=== PATIENT | female | born 1960 | race Caucasian/White ===

== ENCOUNTER 2018-09-05 06:14 | Day surgery (SDC) | payer BC ==
[~2018-09-05 06:14] MED LIST: Lactated Ringers 1,000 ML IV SCH; Lidocaine 1%/Sod Bicarbonate in NS 8.4% 1 ML Syringe IDERM PRN; Sodium Chloride 0.9% 10 ML Syringe FLUSH PRN
[2018-09-05] MEDS ORDERED: Lidocaine 1% PF 2 ML SDV ONE (06:24)
[2018-09-05] MEDS ORDERED: Lidocaine 1% 30 ML SDV ONE (06:24)
[2018-09-05] MEDS ORDERED: Bupivacaine 0.25% 30 ML SDV ONE (06:24)
[2018-09-05] MEDS ORDERED: Propofol 200 MG/20 ML SDV ONE (06:25)
[2018-09-05] MEDS ORDERED: fentaNYL 100 MCG/2 ML SDV ONE (06:25)
[2018-09-05] MEDS ORDERED: Midazolam 1 MG/ML 2 ML SDV ONE (06:25)
--- NOTE | 2018-09-05 06:47 | PCM.PREANE ---
Preanesthetic Assessment - Procedure Proposed Procedure: left ctr, left elbow manipulation - Anesthesia/Transfusion/Family Hx Anesthesia History: Prior Anesthesia Without Reaction Family History of Anesthesia Reaction: No Transfusion History: No Prior Transfusion(s) - Review of Systems General: No Symptoms Pulmonary: No Symptoms Cardiovascular: No Symptoms Gastrointestinal: No Symptoms Neurological: No Symptoms Other: Reports: Thyroid Problems - Physical Assessment NPO Status Date: 09/04/18 NPO Status Time: 21:00 Pulse: 63 O2 Sat by Pulse Oximetry: 98 Respiratory Rate: 16 Blood Pressure: 128/84 Temperature: 97.7 F Height: 5 ft Weight: 52.889 kg ASA Class: 2 Mental Status: Alert & Oriented x3 Airway Class: Mallampati = 1 Dentition: Reports: Normal Dentition Thyro-Mental Finger Breadths: 3 Mouth Opening Finger Breadths: 3 ROM/Head Extension: Full Lungs: Clear to Auscultation, Normal Respiratory Effort Cardiovascular: Regular Rate, Regular Rhythm - Lab Values: Laboratory Last Values MRSA (PCR) Negative 08/29/18 11:30 - Allergies Allergies/Adverse Reactions: Allergies Allergy/AdvReac Type Severity Reaction Status Date / Time No Known Allergies Allergy Verified 09/04/18 14:13 - Blood Blood Available: No - Acknowledgements Anesthesia Type Planned: MAC Pt an Appropriate Candidate for the Planned Anesthesia: Yes Alternatives and Risks of Anesthesia Discussed w Pt/Guardian: Yes Pt/Guardian Understands and Agrees with Anesthesia Plan: Yes PreAnesthesia Questionnaire - Past Health History Medical/Surgical History: Denies Medical/Surgical History HEENT History: Reports: Impaired Vision, Other (See Below) Other HEENT History: wears glasses Cardiovascular History: Reports: None Respiratory History: Reports: None Gastrointestinal History: Reports: Chronic Constipation Genitourinary History: Reports: Other (See Below) Other Genitourinary History: atrophic vaginits, hysterectomy, 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, 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 WET WASH History: Reports: , Other (See Below) Other OB/BYN History: atrophic vaginitis Musculoskeletal History: Reports: Other (See Below) Neurological History: Reports: None Psychiatric History: Reports: None Endocrine/Metabolic History: Reports: Hypothyroidism Hematologic History: Reports: Other (See Below) Other Hematologic History: 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; genetic Immunologic History: Reports: None Oncologic (Cancer) History: Reports: None Dermatologic History: Reports: Other (See Below) Other Dermatologic History: onchomycosis - Past Surgical History Head Surgeries/Procedures: Reports: None HEENT Surgical History: Reports: Tonsillectomy Cardiovascular Surgical History: Reports: None Respiratory Surgical History: Reports: None GI Surgical History: Reports: Colonoscopy Female Surgical History: Reports: Hysterectomy, Oophorectomy, Tubal Ligation Endocrine Surgical History: Reports: None Neurological Surgical History: Reports: None Musculoskeletal Surgical History: Reports: Other (See Below) Other Musculoskeletal Surgeries/Procedures:: right shoulder rotator cuff repair , left elbow surgery Oncologic Surgical History: Reports: None Dermatological Surgical History: Reports: None - SUBSTANCE USE Smoking Status *Q: Never Smoker Tobacco Use Within Last Twelve Months: No Second Hand Smoke Exposure: No Days Per Week of Alcohol Use: 1 (rare) Recreational Drug Use History: No - HOME MEDS Home Medications: Home Meds Levothyroxine [Synthroid] 50 mcg PO ACBREAKFAST 06/10/18 [History] Methylcellulose [Fiber Laxative] 500 mg PO DAILY PRN 09/04/18 [History] - CURRENT (IN HOUSE) MEDS Current Meds: Current Medications Lactated Ringer's (Ringers, Lactated) 1,000 mls @ 125 mls/hr IV ASDIRECTED REESE Stop: 09/05/18 23:00 Lidocaine/Sodium Bicarbonate (Buffered Lidocaine 1% In Ns 8.4%) 0.25 ml IDERM ONETIME PRN PRN Reason: Prior to IV Start Stop: 09/05/18 23:00 Sodium Chloride (Saline Flush) 10 ml FLUSH ASDIRECTED PRN PRN Reason: Keep Vein Open Stop: 09/05/18 23:00 Discontinued Medications Bupivacaine HCl (Marcaine 0.25%) Confirm Administered Dose 30 ml .ROUTE .STK- MED ONE Stop: 09/05/18 06:25 Fentanyl (Sublimaze) Confirm Administered Dose 100 mcg .ROUTE .STK-MED ONE Stop: 09/05/18 06:26 Lidocaine HCl (Xylocaine-Mpf 1%) Confirm Administered Dose 4 ml .ROUTE .STK-MED ONE Stop: 09/05/18 06:25 Lidocaine HCl (Xylocaine-Mpf 1%) Confirm Administered Dose 30 ml .ROUTE .STK- MED ONE Stop: 09/05/18 06:25 Midazolam HCl (Versed 1 Mg/Ml) Confirm Administered Dose 2 mg .ROUTE .STK-MED ONE Stop: 09/05/18 06:26 Propofol (Diprivan 20 Ml) Confirm Administered Dose 200 mg .ROUTE .STK-MED ONE Stop: 09/05/18 06:26
[2018-09-05] MEDS ORDERED: Ketorolac 30 MG/ML SDV ONE (07:55)
--- NOTE | 2018-09-05 07:58 | PCM48HPAN ---
Post Anesthesia Note - EVALUATION WITHIN 48HRS OF ANESTHETIC Vital Signs in Normal Range: Yes Patient Participated in Evaluation: Yes Respiratory Function Stable: Yes Airway Patent: Yes Cardiovascular Function Stable: Yes Hydration Status Stable: Yes Pain Control Satisfactory: Yes Nausea and Vomiting Control Satisfactory: Yes Mental Status Recovered: Yes Pulse Rate: 80 SaO2: 96 Resp Rate: 16 Temperature: 97.9 F Blood Pressure: 113/77
--- NOTE | 2018-09-05 08:15 | CR ---
Left elbow: Two fluoroscopic spot views were obtained of the left elbow. Study obtained utilizing C-arm device. Comparison: Previous left elbow study of 06/10/18 and 06/17/18. Plate and screws are seen affixing previous olecranon process fracture. Previous fracture line is poorly seen. Soft tissue swelling has diminished from previous exams. Osteopenia appears to be present. Impression: 1. Findings as noted above. Diagnostic code #2
--- NOTE | 2018-09-09 09:52 | PCM.OPNOTE ---
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
--- NOTE | 2018-09-09 10:28 | OR ---
DATE OF OPERATION: 09/05/2018 SURGEON: Herberth Burgess MD OPERATION PERFORMED: Left carpal tunnel release and left elbow manipulation under anesthesia. PREOPERATIVE DIAGNOSIS: Left median nerve compression neuropathy and left elbow ankylosis. POSTOPERATIVE DIAGNOSIS: Left median nerve compression neuropathy and left elbow ankylosis. ANESTHESIA: Technique: Local MAC. ANESTHESIA PROVIDER: Blane Geller CRNA. UNDERCAR SPECIALIST: June Gustafson PA-C. ESTIMATED BLOOD LOSS: Less than 5 mL. COMPLICATIONS: None. CONDITION: Stable. DESCRIPTION OF PROCEDURE: The patient was identified in the preop holding area. Proper site was marked and identified by the surgeon. The patient was taken back to the operating theater, where after adequate anesthesia, the left elbow range of motion was measured. At this time, it was 30 to 90 with significant ankylosis. At this time, a manipulation was performed. The patient was able to get up to 148 degrees of flexion. She had full pronation and supination and was only 5 degrees short with overpressure of the elbow extension. At this time, the patient's left upper extremity was sterilely prepped and draped in the usual sterile fashion. OR time-out was performed. The patient did not receive antibiotics and it is not indicated for soft tissue hand procedure. At this time, the left upper extremity was exsanguinated and an Esmarch was used as a tourniquet on the forearm. At this time, using 1% lidocaine without epinephrine and 0.25% Marcaine without epinephrine, the palmar cutaneous branch of the median nerve was anesthetized and then the incisional site was anesthetized using [place] cardinal line and ulnar border of the fourth digit as reference. Once this had set up, an incision was made. Blunt dissection was taken down to the palmar cutaneous fascia. Palmar cutaneous fascia was incised with a [place] blade. At this time, the transverse carpal ligament was identified. A small rent was made in the transverse carpal ligament with a [place] blade under direct visualization. Resection of the transverse carpal ligament was done distally using tenotomy scissors making sure to stop short of the palmar arch. At this time, attention was turned proximally after it was found to be adequately released. Using the tenotomy scissors keeping the tips ulnar to protect the palmar cutaneous branch of the median nerve, the superficial forearm fascia as well as the transverse carpal ligament were resected proximally. It was found to be adequate release both proximally and distally. At this time, adequate saline was irrigated through the wound. 4-0 nylon sutures were used closure of the skin. The patient was placed in a sterile soft dressing and sent to PACU in stable condition. GARRY /[id number]
== END 2018-09-05 08:41 | disposition home or self-care (01) ==
LOC: JD.SDS 06:14
PROVIDERS: ATTEND Orthopaedic Surgery
DX: G56.02 Carpal tunnel syndrome, left upper limb (principal); M24.622 Ankylosis, left elbow; E03.9 Hypothyroidism, unspecified; Z79.890 Hormone replacement therapy; Z79.899 Other long term (current) drug therapy
CPT/HCPCS: 24300; 64721; 76000; 87641; J1885; J2001; J2250; J2704; J3010; J3490; J7120; 01810

== ENCOUNTER 2019-04-29 09:07 | Day surgery (SDC) | payer BC ==
[~2019-04-29 09:07] MED LIST changes: +FLU Vacc QS2019-20(6MOS+)/PF 60 MCG/0.5 ML SYRINGE IM ONE
--- NOTE | 2019-04-29 09:59 | PCM.PREANE ---
Preanesthetic Assessment - Anesthesia/Transfusion/Family Hx Anesthesia History: Prior Anesthesia Without Reaction Family History of Anesthesia Reaction: No Transfusion History: No Prior Transfusion(s) - Review of Systems General: No Symptoms, Other (blood clotting disorder, on ASA for this ) Pulmonary: No Symptoms Cardiovascular: No Symptoms, Other (hx of CO, cardiolite in 11/2018 neg with EF estimated at 70%, EKG SR with old CO) Gastrointestinal: Constipation Neurological: Other (neuropathy in feet, a burning feeling) Other: Reports: Thyroid Problems (on supplementation) - Physical Assessment NPO Status Date: 04/29/19 NPO Status Time: 04:30 Vital Signs: Last Vital Signs Temp 36.7 C 04/29/19 09:16 Pulse 70 04/29/19 09:16 Resp 16 04/29/19 09:16 BP 135/80 04/29/19 09:16 Pulse Ox 98 04/29/19 09:16 Height: 1.52 m Weight: 48.8 kg ASA Class: 2 Mental Status: Alert & Oriented x3 Airway Class: Mallampati = 2 Dentition: Reports: Normal Dentition Thyro-Mental Finger Breadths: 3 Mouth Opening Finger Breadths: 3 ROM/Head Extension: Full Lungs: Clear to Auscultation, Normal Respiratory Effort Cardiovascular: Regular Rate, Regular Rhythm - Allergies Allergies/Adverse Reactions: Allergies Allergy/AdvReac Type Severity Reaction Status Date / Time No Known Allergies Allergy Verified 04/29/19 09:43 - Blood Blood Available: No Product(s) Available: None - Anesthesia Plan Pre-Op Medication Ordered: None - Acknowledgements Anesthesia Type Planned: MAC Pt an Appropriate Candidate for the Planned Anesthesia: Yes Alternatives and Risks of Anesthesia Discussed w Pt/Guardian: Yes Pt/Guardian Understands and Agrees with Anesthesia Plan: Yes PreAnesthesia Questionnaire - Past Health History Medical/Surgical History: Denies Medical/Surgical History HEENT History: Reports: Impaired Vision Other HEENT History: wears glasses Cardiovascular History: Reports: CO Respiratory History: Reports: None Gastrointestinal History: Reports: Chronic Constipation Genitourinary History: Reports: Other (See Below) Other Genitourinary History: atrophic vaginits, hysterectomy, 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, 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 INCIDENT ANALYST History: Reports: , Other (See Below) Other OB/BYN History: atrophic vaginitis Musculoskeletal History: Reports: Other (See Below) Neurological History: Reports: Neuropathy, Peripheral Psychiatric History: Reports: None Endocrine/Metabolic History: Reports: Hypothyroidism Hematologic History: Reports: Other (See Below) Other Hematologic History: 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; genetic Immunologic History: Reports: None Oncologic (Cancer) History: Reports: None Dermatologic History: Reports: Other (See Below) Other Dermatologic History: onchomycosis - Past Surgical History Head Surgeries/Procedures: Reports: None HEENT Surgical History: Reports: Tonsillectomy Cardiovascular Surgical History: Reports: None Respiratory Surgical History: Reports: None GI Surgical History: Reports: Colonoscopy Female Surgical History: Reports: Hysterectomy, Oophorectomy, Tubal Ligation Endocrine Surgical History: Reports: None Neurological Surgical History: Reports: None Musculoskeletal Surgical History: Reports: Other (See Below) Other Musculoskeletal Surgeries/Procedures:: right shoulder rotator cuff repair , left elbow surgery x 2 Oncologic Surgical History: Reports: None Dermatological Surgical History: Reports: None - SUBSTANCE USE Smoking Status *Q: Never Smoker Recreational Drug Use History: No - HOME MEDS Home Medications: Home Meds Levothyroxine [Synthroid] 50 mcg PO ACBREAKFAST 06/10/18 [History] Methylcellulose [Fiber Laxative] 500 mg PO DAILY PRN 09/04/18 [History] Aspirin [Halfprin] 81 mg PO DAILY 04/28/19 [History] Estradiol [Estrace] 1 dose TOP Q96H 04/28/19 [History] - CURRENT (IN HOUSE) MEDS Current Meds: Current Medications Lactated Ringer's (Ringers, Lactated) 1,000 mls @ 125 mls/hr IV ASDIRECTED REESE Stop: 04/29/19 23:00 Last Admin: 04/29/19 09:28 Dose: 125 mls/hr Influenza Virus Vaccine (Pharmacy To Dose - Influenza Vaccine) 1 each IM ONETIME REESE Lidocaine/Sodium Bicarbonate (Buffered Lidocaine 1% In Ns 8.4%) 0.25 ml IDERM ONETIME PRN PRN Reason: Prior to IV Start Stop: 04/29/19 18:00 Last Admin: 04/29/19 09:27 Dose: 0.25 ml Sodium Chloride (Saline Flush) 10 ml FLUSH ASDIRECTED PRN PRN Reason: Keep Vein Open Stop: 04/29/19 18:00 Discontinued Medications Lactated Ringer's (Ringers, Lactated) 1,000 mls @ 125 mls/hr IV ASDIRECTED REESE Stop: 04/22/19 23:00 Influenza Virus Vaccine (Fluzone Quad Syringe) 60 mcg IM .ONCE ONE Stop: 04/28/19 10:01 Lidocaine/Sodium Bicarbonate (Buffered Lidocaine 1% In Ns 8.4%) 0.25 ml IDERM ONETIME PRN PRN Reason: Prior to IV Start Stop: 04/22/19 18:00 Sodium Chloride (Saline Flush) 10 ml FLUSH ASDIRECTED PRN PRN Reason: Keep Vein Open Stop: 04/22/19 18:00
[2019-04-29] MEDS ORDERED: Midazolam 1 MG/ML 2 ML SDV ONE (11:23)
[2019-04-29] MEDS ORDERED: Propofol 200 MG/20 ML SDV ONE (11:23)
--- NOTE | 2019-04-29 12:39 | PCM48HPAN ---
Post Anesthesia Note - EVALUATION WITHIN 48HRS OF ANESTHETIC Vital Signs in Normal Range: Yes Patient Participated in Evaluation: Yes Respiratory Function Stable: Yes Airway Patent: Yes Cardiovascular Function Stable: Yes Hydration Status Stable: Yes Pain Control Satisfactory: Yes Nausea and Vomiting Control Satisfactory: Yes Mental Status Recovered: Yes Vital Signs: Last Vital Signs Temp 36.7 C 04/29/19 09:16 Pulse 70 04/29/19 09:16 Resp 16 04/29/19 09:16 BP 135/80 04/29/19 09:16 Pulse Ox 98 04/29/19 09:16
--- NOTE | 2019-04-29 12:50 | PCM.PRNOTE ---
- Free Text/Narrative Note: Procedure: screening colonoscopy Endoscopist: Rupert Navarrete MD Specimens: none Findings: Good prep. grade 1 internal hemorrhoids. Detailed report: The patient was placed in left lateral decubitus position and underwent MAC anesthesia. The anus appeared normal. Digital rectal exam was normal. The colonoscope was inserted and advanced successfully to the cecum. Prep was good. The colon was redundant making navigation onerous. The scope was then slowly retracted and the mucosal surface carefully inspected in its entirety. Small, innumerable hamartomatous lesions were noted in the distal colon (photos were obtained). There was no significant diverticular disease. No polyps or other mucosal lesions noted. Grade 1 hemorrhoids noted on retroflexion. The patient tolerated the procedure well; there were no complications. Rupert Navarrete MD General Surgery
[2019-04-29] MEDS ORDERED: FLU Vacc QS2019-20(6MOS+)/PF 60 MCG/0.5 ML SYRINGE ONE (13:13)
== END 2019-04-29 13:21 | disposition home or self-care (01) ==
LOC: JD.SDS 09:07
PROVIDERS: ATTEND Surgery
DX: Z12.11 Encounter for screening for malignant neoplasm of colon (principal); K64.0 First degree hemorrhoids; K63.9 Disease of intestine, unspecified; E03.9 Hypothyroidism, unspecified; D68.9 Coagulation defect, unspecified; Z80.0 Family history of malignant neoplasm of digestive organs; Z79.82 Long term (current) use of aspirin; Z79.899 Other long term (current) drug therapy
CPT/HCPCS: 00812; 90686; G0008; J2250; J2704; J7120

== ENCOUNTER 2022-10-30 08:59 | Emergency (ER) | payer BC ==
[2022-10-30] MEDS ORDERED: Sodium Chloride 0.9% 10 ML Syringe FLUSH PRN (09:15)
[2022-10-30] MEDS ORDERED: Meclizine 25 MG Tab PO ONE (09:17)
[2022-10-30 09:49] LABS: ESTIMATED GFR 101 mL/min (>60)
== END 2022-10-30 11:04 | disposition home or self-care (01) ==
LOC: JD.ED 08:59
DX: I67.1 Cerebral aneurysm, nonruptured (principal); E03.9 Hypothyroidism, unspecified; E04.1 Nontoxic single thyroid nodule; Z79.899 Other long term (current) drug therapy
CPT/HCPCS: 36415; 70450; 70496; 70498; 80053; 82947; 84484; 85025; 85610; 85730; 93005; 99284; A9270; J3490; 93010; 99285